=== PATIENT | female | born 1980 | race Caucasian/White ===

== ENCOUNTER 2021-05-19 12:50 | Inpatient (IN) | payer OTHER ==
[~2021-05-19] VITALS: Ht 160 cm; Wt 64.0 kg
[2021-05-19 13:49] LABS: BILIRUBIN NEGATIVE (NEGATIVE); BLOOD NEGATIVE Ery/uL (NEGATIVE); CLARITY CLEAR (CLEAR); COLOR YELLOW (YELLOW); GLUCOSE (U) NORMAL (NORMAL); LEUKOCYTES NEGATIVE Leu/uL (NEGATIVE); NITRITE NEGATIVE (NEGATIVE); PROTEIN NEGATIVE (NEGATIVE); UROBILINOGEN 0.2 mg/dL (0.2-1.0)
[2021-05-19 15:37] LABS: HCT 37.5 % (37.0-47.0); HGB 12.9 g/dl (12.5-16.0); MCH 31.7 pg (25.0-31.0); MCHC 34.4 g/dL (32.0-36.0); MCV 92.1 fL (78.0-100.0); MPV 11.5 fL (6.0-9.5); RBC 4.07 M/uL (4.20-5.40); RDW 13.5 % (11.5-14.0); WBC 9.6 K/uL (4.0-10.5)
[2021-05-20 06:47] LABS: HCT 33.9 % (37.0-47.0); HGB 11.5 g/dl (12.5-16.0); MCH 31.3 pg (25.0-31.0); MCHC 33.9 g/dL (32.0-36.0); MCV 92.4 fL (78.0-100.0); MPV 11.6 fL (6.0-9.5); RBC 3.67 M/uL (4.20-5.40); RDW 13.5 % (11.5-14.0); WBC 11.6 K/uL (4.0-10.5)
== END 2021-05-21 21:54 | disposition home or self-care (01) | DRG 807 ==
LOC: FOB 12:50 → FOD 12:50 → FOB 13:11
PROVIDERS: ADMIT Obstetrics & Gynecology
PROC: 10E0XZZ Delivery of Products of Conception, External Approach (ICD-10-PCS; 2021-05-19)
PROC: 10D17Z9 Manual Extraction of Products of Conception, Retained, Via Natural or Artificial Opening (ICD-10-PCS; 2021-05-19)
PROC: 0HQ9XZZ Repair Perineum Skin, External Approach (ICD-10-PCS; 2021-05-19)
PROC: 3E0234Z Introduction of Serum, Toxoid and Vaccine into Muscle, Percutaneous Approach (ICD-10-PCS; principal; 2021-05-20)
DX: O41.03X0 Oligohydramnios, third trimester, not applicable or unspecified (principal); Z37.0 Single live birth; O34.211 Maternal care for low transverse scar from previous cesarean delivery; Z20.822 Contact with and (suspected) exposure to COVID-19; O26.893 Other specified pregnancy related conditions, third trimester; O70.0 First degree perineal laceration during delivery; Z23 Encounter for immunization; Z3A.38 38 weeks gestation of pregnancy; O99.344 Other mental disorders complicating childbirth; F32.9 Major depressive disorder, single episode, unspecified; Z91.040 Latex allergy status; Z91.013 Allergy to seafood; Z67.41 Type O blood, Rh negative
CPT/HCPCS: 36415; 81003; 84112; 85461; 86850; 86900; 86901; J2790; J2795; J7120; U0002